=== PATIENT | male | born 1955 | race Two or more races ===

== ENCOUNTER 2023-11-29 15:43 | Emergency (ER) | payer OTHER ==
[~2023-11-29] VITALS: Ht 182.9 cm; Wt 109.0 kg
[2023-11-29 17:49] LABS: Basophils # (auto) 0.1 10 ^3/uL (0-0.2); Basophils % (auto) 0.4 % (0.0-2.0); Eosinophils # (auto) 0.2 10 ^3/uL (0-0.8); Eosinophils % (auto) 1.6 % (0.0-7.0); Hematocrit 43.8 % (41.0-53.0); Hemoglobin 14.6 g/dL (13.5-17.5); Lymphocytes # (auto) 1.8 10 ^3/uL (0.4-5.4); Lymphocytes % (auto) 14.9 % (10.0-50.0); Mean Corpuscular Hgb Conc. 33.4 g/dL (32.0-36.0); Mean Corpuscular Volume 92.9 fL (80.0-100.0); Neutrophils % (auto) 75.1 % (37.0-80.0); Nucleated Red Blood Cells % 0.1 %; Platelet Count (auto) 270 10^3/uL (140-450); Red Blood Cells 4.72 10^6/uL (4.5-5.90); Red Cell Distribution Width 15.8 % (11.8-14.3)
[2023-11-29 18:10] LABS: Alanine Aminotransferase 88 U/L (7-40); Albumin 4.4 g/dL (3.2-4.8); Alkaline Phosphatase 98 U/L (46-116); Anion Gap 9 (5-15); Aspartate Aminotransferase 171 U/L (13-40); BUN/Creatinine Ratio 8.1 (10.0-20.0); Bilirubin, Total 0.4 mg/dL (0.2-1.0); Blood Urea Nitrogen 11 mg/dL (9-23); Calcium 9.9 mg/dL (8.7-10.4); Carbon Dioxide 25 mmol/L (20-30); Chloride 104 mmol/L (98-107); Glucose 111 mg/dL (74-106); Potassium 3.4 mmol/L (3.5-5.1); Sodium 138 mmol/L (136-145)
[2023-11-29 19:14] LABS: INR 1.06 (0.9-1.15); Prothrombin Time 11.2 sec (9.3-11.8)
[2023-11-29] MEDS ORDERED: IOHEXOL 350 MG/ML 100ML IJ ONE (22:03)
[2023-11-30 05:40] VITALS: PULSE 82; RESP 17; TEMP 97.6; O2SAT 97
[2023-11-30] MEDS ORDERED: LABETALOL HCL 20 MG/4 ML VL IV ONE (05:56)
[2023-11-30 06:09] VITALS: BP 187/98
[2023-11-30] MEDS: LABETALOL HCL 20 MG/4 ML VL IV ONE (06:10)
== END 2023-11-30 06:10 | disposition short-term general hospital (02) ==
LOC: EDSEX 15:43 → ER 15:43
DX: H34.232 Retinal artery branch occlusion, left eye (principal); I10 Essential (primary) hypertension
CPT/HCPCS: 36415; 70450; 70496; 80053; 85025; 85610; 96374; 99291; Q9967